=== PATIENT | female | born 1995 | race Asian ===

== ENCOUNTER 2017-04-15 15:24 | Emergency (ER) | payer SELFPAY ==
[~2017-04-15] VITALS: Ht 152.4 cm; Wt 50.0 kg
[2017-04-15 15:28] VITALS: BP 125/83
[2017-04-15] MEDS ORDERED: SODIUM CHLORIDE FLUSH 10ML SYR IVF ONE (16:00)
[2017-04-15] MEDS ORDERED: PLEASE ENTER HEIGHT AND WEIGHT MC SCH (16:00)
[2017-04-15 16:07] LABS: BLOOD UREA NITROGEN 25 mg/dL (7-18)
== END 2017-04-15 16:23 | disposition home or self-care (01) ==
LOC: ED 16:17
DX: R07.89 Other chest pain (principal); K21.9 Gastro-esophageal reflux disease without esophagitis
CPT/HCPCS: 36415; 71010; 80048; 82040; 85025; 93005; 99285

== ENCOUNTER 2021-02-05 08:36 | Emergency (ER) | payer SELFPAY ==
[~2021-02-05] VITALS: Ht 152.4 cm; Wt 48.6 kg
--- NOTE | 2021-02-05 09:15 | NUR ---
assumed care of pt. pt here c/o umbilical abd pain and N/V x2 days. pt reports that she uses meth and marijuana every day. denies urinary c/o. pt is unaware of her last mentrual period kand does not know if she is A&O x4. no vomiting at this time pt ambulatory but WC to BR with family member to attempt urine sample
[2021-02-05] MEDS ORDERED: SODIUM CHLORIDE 0.9% 1,000ML IVBOLUS ONE (09:30)
[2021-02-05] MEDS ORDERED: ONDANSETRON 2MG/ML, 2ML IVPush ONE (09:30)
[2021-02-05] MEDS ORDERED: FAMOTIDINE 20 MG/2 ML IVPush ONE (09:30)
[2021-02-05] MEDS ORDERED: METOCLOPRAMIDE 5 MG/ML, 2ML ONE (09:50)
[2021-02-05] MEDS ORDERED: DICYCLOMINE 10 MG/ML, 2ML ONE (09:50)
[2021-02-05 09:53] LABS: BASOPHILS % (AUTO) 1 % (0-1); EOSINOPHILS % (AUTO) 1 % (1-7); LYMPHOCYTES % (AUTO) 12 % (22-44); MEAN CORPUSCULAR HEMOGLOBIN 29.8 pg (27.0-34.8); MEAN CORPUSCULAR HGB CONC 34.3 g/dL (32.4-35.8); MEAN PLATELET VOLUME 7.4 fL (7.4-10.4); MONOCYTES % (AUTO) 6 % (2-9); NEUTROPHILS % (AUTO) 81 % (42-75); PLATELET COUNT 365 x10^3/uL (130-400); RED BLOOD COUNT 4.79 x10^6/uL (3.82-5.3)
[2021-02-05 09:55] LABS: MICROSCOPIC INDICATED
--- NOTE | 2021-02-05 10:00 | NUR ---
pt has had no vomtiting since admit. resting on [facility] using her cell phone. no apparent distress awaiting test results
[2021-02-05 10:06] LABS: ALBUMIN 4.1 g/dL (3.4-5.0); ANION GAP 5 mmol/L (5-15); CALCIUM 8.8 mg/dL (8.5-10.1); CHLORIDE 104 mmol/L (98-107); CREATININE 0.71 mg/dL (0.55-1.02)
[2021-02-05] MEDS ORDERED: FAMOTIDINE 20 MG/2 ML ONE (10:06)
[2021-02-05] MEDS ORDERED: ONDANSETRON 2MG/ML, 2ML ONE (10:06)
[2021-02-05 10:15] LABS: MD SCAN
[2021-02-05 11:08] VITALS: BP 117/73
--- NOTE | 2021-02-05 11:16 | NUR ---
Patient given discharge instructions and they have confirmed that they understand the instructions. Patient stable and ambulatory with steady gait from ED with family member to private vehicle.
--- NOTE | 2021-02-05 11:46 | NUR ---
this pt was D/C by another RN
== END 2021-02-05 11:17 | disposition home or self-care (01) ==
LOC: ED 09:22
DX: K52.9 Noninfective gastroenteritis and colitis, unspecified (principal); N30.00 Acute cystitis without hematuria; Z20.822 Contact with and (suspected) exposure to COVID-19; F17.210 Nicotine dependence, cigarettes, uncomplicated; R94.31 Abnormal electrocardiogram [ECG] [EKG]
CPT/HCPCS: 36415; 80048; 81001; 82040; 84703; 85025; 87077; 87086; 93005; 96361; 96374; 96375; 99284; 99406; J2405; J7030; U0003; 87186

== ENCOUNTER 2021-06-07 07:45 | Emergency (ER) | payer MEDICAID ==
[~2021-06-07] VITALS: Ht 152.4 cm; Wt 49.5 kg
[2021-06-07 07:48] VITALS: BP 134/83
--- NOTE | 2021-06-07 07:56 | NUR ---
THIS IS A 25 YEAR OLD FEMALE WHO C/O FEVERS AND BLISTERS IN THE MOUTH THAT STARTED 3 WEEKS AGO. PT ALSO C/O TROUBLE PEEING.
--- NOTE | 2021-06-07 08:20 | NUR ---
PT UP TO BATHROOM, DISCUSS NEED FOR CLEAN CATCH URINE, PT VERBALIZED UNDERSTANDING.
--- NOTE | 2021-06-07 08:29 | NUR ---
PT REFUSED TO PROVIDE ANY HEALTH INFORMATION, EXAM, OR TESTING TO PROVIDER.
== END 2021-06-07 08:32 | disposition left against medical advice (07) ==
LOC: ED 07:53
DX: K13.70 Unspecified lesions of oral mucosa (principal); F17.210 Nicotine dependence, cigarettes, uncomplicated; Z59.0 Homelessness
CPT/HCPCS: 99281